=== PATIENT | male | born 1955 | race Caucasian/White ===

== ENCOUNTER 2016-12-29 12:14 | Emergency (ER) | payer BC ==
[2016-12-29 12:54] VITALS: BP 136/89
--- NOTE | 2016-12-29 14:22 | UC ---
Allegra Barboza Janilya, scribed for Karlene Hughes MD on 12/29/16 at 1304 . Eye Complaint HPI - HPI Summary HPI Summary: A 61 y/o male came in to [facility] presenting w/ a gradual onset of intermittent eye flashes in his left eye that last a few seconds. According to pt, last night, out of the left corner of his eye, he had flashes that move in a circular pattern like "a comet". It lasted only a few seconds. He denies loss of vision, black spots in the vision. He experienced these flashes again this morning. Pt also has baseline floaters in his left eye that did not get better or worse with his current Sx. However, the floaters have become fuzzier than normal ( sharp), although it is better now. These sx did not occur in broad daylight. He felt like he could almost make the flash come on with moving his eyes, but he specifically states not in the bright light of the exam room/sunshine today. He goes to [facility] for his glasses. Additionally, although not significant and not pt's chief complaint, pt has cold like Sx, such as coughing and wheezing. He has been taking NyQuil. PMHx HTN, for which he takes medication, so is well controlled. Pt is accompanied by his . - History of Current Complaint Stated Complaint: SEEING FLASHES AROUND EYE Hx Obtained From: Patient Onset/Duration: Gradual Onset, Lasting Days, Still Present Timing: Intermittent Episode Lasting - a few seconds Severity Initially: Moderate Severity Currently: Moderate Aggravating Factor(s): Nothing Alleviating Factor(s): Nothing Associated Signs And Symptoms: Negative: Vision Impairment Right, Vision Impairment Left - Allergies/Home Medications Allergies/Adverse Reactions: Allergies Allergy/AdvReac Type Severity Reaction Status Date / Time Poison Lillie Extract/Poison Allergy Unknown Unknown Verified 12/29/16 12:43 [place] Extra Reaction [From Poison Lillie/[place] Extract] Details Home Medications: Home Medications Atorvastatin* [Lipitor 40 MG*] 1 tab PO BID 12/29/16 [History Confirmed 12/29/16 ] PMH/Surg Hx/FS Hx/Imm Hx Previously Healthy: Yes Endocrine History Of: Reports: Diabetes Denies: Thyroid Disease Cardiovascular History Of: Reports: Hypertension Denies: Cardiac Disorders Respiratory History Of: Denies: COPD, Asthma GI/ History Of: Reports: Gastroesophageal Reflux Denies: Ulcer - Surgical History Surgical History: None - Family History Known Family History: Positive: Hypertension, Diabetes - father - Social History Alcohol Use: None Substance Use Type: None Smoking Status (MU): Former Smoker Review of Systems Constitutional: Negative Skin: Negative Eyes: Blurred Vision - his floaters were blurrier than normal, Other - Flashes like "comets" in his left eye ENT: Negative Respiratory: Cough, Other - wheezing Cardiovascular: Negative Gastrointestinal: Negative Genitourinary: Negative Motor: Negative Neurovascular: Negative Musculoskeletal: Negative Neurological: Negative Psychological: Negative All Other Systems Reviewed And Are Negative: Yes Physical Exam Triage Information Reviewed: Yes Appearance: Well-Appearing Vital Signs: Initial Vital Signs Temp 98.3 F 12/29/16 12:47 Pulse 88 12/29/16 12:47 Resp 16 12/29/16 12:47 BP 136/89 12/29/16 12:47 Pulse Ox 96 12/29/16 12:47 Vital Signs Reviewed: Yes Eye Exam: Normal Eyes: Positive: Conjunctiva Clear, Other: - Fundus exam normal. ENT: Positive: Normal ENT inspection, Hearing grossly normal, Pharynx normal, Nasal drainage, TMs normal, Other: - Post-nasal drip. Negative: Pharyngeal erythema, Nasal congestion, TM bulging, TM dull, TM red, Tonsillar swelling, Tonsillar exudate Dental Exam: Normal Neck: Positive: Supple, Nontender, No Lymphadenopathy Respiratory: Positive: Lungs clear, Normal breath sounds, No respiratory distress, No accessory muscle use Cardiovascular: Positive: RRR, No Murmur, Pulses Normal Abdomen Description: Positive: Nontender, Soft Musculoskeletal Exam: Normal Neurological Exam: Normal Psychological Exam: Normal Skin Exam: Normal Eye Complaint Course/Dx - Course Course Of Treatment: I called Dr Dunn's office to see if they were open today and could see the pt if needed. Dr Dunn r/c and I reviewed his sx in detail with her. She recommends f/u at their office on 3/6 AM, but made it clear that if sx worsen, loss of vision or shadows occur, he should go to [facility]. I have reveiwed this with David and his Evelia, they understood me well and are very agreeable with this plan. - Differential Dx/Diagnosis Differential Diagnosis/HQI/PQRI: Detached Retina, Foreign Body, Retinal Artery Occlusion Provider Diagnoses: floaters, visual flashes of light. Discharge - Discharge Plan Condition: Stable Disposition: HOME Prescriptions: Albuterol HFA INHALER* [Ventolin HFA Inhaler*] 2 puff INH Q4H PRN #1 mdi PRN Reason: Cough Patient Education Materials: Upper Respiratory Infection (ED), Visual Floaters (ED) Referrals: Yvette Montero MD [Primary Care Provider] - Edie Dunn [Medical Doctor] - 12/31/16 Additional Instructions: We discussed the nature of the visual disturbance you are having and my conversation with Dr Dunn. If the flashes get worse, especially in broad daylight, you develop shadows or the floaters worsen suddenly, please go to the [facility] ER immediately. For your cold, fluids, rest and inhaler will be helpful as well. The documentation as recorded by the Allegra garza Janilya accurately reflects the service I personally performed and the decisions made by me, Karlene Hughes MD.
== END 2016-12-29 13:50 | disposition home or self-care (01) ==
LOC: UCEAST 12:14
DX: H43.392 Other vitreous opacities, left eye (principal); H53.19 Other subjective visual disturbances; I10 Essential (primary) hypertension; Z87.891 Personal history of nicotine dependence
CPT/HCPCS: 99212; G0463

== ENCOUNTER 2018-03-26 08:43 | Day surgery (SDC) | payer BC ==
[~2018-03-26 08:43] MED LIST: Buffered Lidocaine 0.9% SYRIN* 5 ML/SYR SYRINGE INTRADERM ONE
[2018-03-26] MEDS ORDERED: Propofol* 10 MG/ML 20 ML BTL IV PUSH ONE (10:59)
[2018-03-26] MEDS ORDERED: Lidocaine 2% PF * 5 ML VIAL ONE (10:59)
[2018-03-26 11:33] VITALS: BP 122/67
[2018-03-26] MEDS ORDERED: Phenylephrine 2.5% OPTH.SOL* 2 ML BTL ONE (12:22)
[2018-03-26] MEDS ORDERED: Neomycin/Polymy/Dex OPTH.SUSP* MAXITROL 0.1% 5 ML ONE (12:22)
[2018-03-26] MEDS ORDERED: Cyclopentolate 1% OPTH.SOL* 2 ML BTL ONE (12:22)
[2018-03-26] MEDS ORDERED: Proparacaine 0.5% OPHTH.SOL* 15 ML BTL ONE (12:22)
[2018-03-26] MEDS ORDERED: Lidocaine 2% EPI 1:200000 MPF*10-20 ML VIAL ONE (12:22)
[2018-03-26] MEDS ORDERED: Ketorolac 0.5% OPHTH (NF) 0.5 % 5 ML BTL ONE (12:22)
[2018-03-26] MEDS ORDERED: acetaZOLAMIDE TAB* 250 MG ONE (12:22)
[2018-03-26] MEDS ORDERED: Povidone Iodine 5% OPTH* 30 ML BTL ONE (12:22)
[2018-03-26] MEDS ORDERED: Lidocaine 1%* 5 ML VIAL ONE (12:22)
--- NOTE | 2018-03-27 08:26 | OP ---
DATE OF OPERATION: 03/26/18 [facility] DATE OF : 51 SURGEON: Watson Hameed M.D. PREOPERATIVE DIAGNOSIS: Cataract, left eye. POSTOPERATIVE DIAGNOSIS: Cataract, left eye. OPERATIVE PROCEDURE: Extracapsular cataract extraction with intraocular lens implant, left eye, and CTR. DESCRIPTION OF PROCEDURE: The patient was brought to the operating room after being given 1/2% Alcaine with epinephrine drops in the preoperative area. The eye was prepped and draped in the usual sterile fashion. Sterile drape and eyelid speculum were placed. Again, topical 1/2% Alcaine with epinephrine was given. A paracentesis incision was made at the 3 o'clock position with the No. 75 blade. Clear cornea incision 2.2 x 2.2-mm was created at the 6 o'clock position starting at the anterior limbus using the 2.2-mm keratome. The anterior chamber was irrigated with 0.4 mL of 1% non-preservative intracameral lidocaine and filled with DisCoVisc. A capsulorrhexis was completed using the cystotome and the Utrata forceps. Hydrodissection was performed with balanced salt solution. The lens nucleus was removed with the Phacoemulsification handpiece without incident. Cortex was removed with the irrigation-aspiration handpiece. The capsular bag was re-inflated using DisCoVisc and an [id number] implant was inserted with the shooter followed by capsular tension ring. A CTR 12 was inserted with the shooter. The irrigation- aspiration handpiece was used to remove all residual DisCoVisc. The eye was refilled with balanced salt solution and the wound checked and found to be water tight. Topical Maxitrol drops were given. Indications for complex cataract surgery: Status post vitrectomy requiring capsular tension device. [id number]/[facility] #: [id number] MTDD
== END 2018-03-26 11:46 | disposition home or self-care (01) ==
LOC: OREAST 08:43
PROVIDERS: ATTEND Specialist
DX: H25.813 Combined forms of age-related cataract, bilateral (principal); H33.8 Other retinal detachments; I10 Essential (primary) hypertension; K21.9 Gastro-esophageal reflux disease without esophagitis; E78.00 Pure hypercholesterolemia, unspecified; E11.9 Type 2 diabetes mellitus without complications; Z87.891 Personal history of nicotine dependence
CPT/HCPCS: A9270-GY; J2704; V2632

== ENCOUNTER 2018-03-27 15:27 | Day surgery (SDC) | payer BC ==
[2018-03-27] MEDS ORDERED: Acetylcholine 1:100 OPTH* OPHTH.SOLN ONE (15:48)
[2018-03-27] MEDS ORDERED: Ondansetron INJ* 2 MG/ML VIAL ONE (15:58)
[2018-03-27] MEDS ORDERED: Lidocaine 2% PF * 5 ML VIAL ONE (15:58)
[2018-03-27] MEDS ORDERED: Propofol* 10 MG/ML 20 ML BTL IV PUSH ONE (15:58)
[2018-03-27] MEDS ORDERED: Proparacaine 0.5% OPHTH.SOL* 15 ML BTL ONE ×2 (16:02→16:30)
[2018-03-27] MEDS ORDERED: Lidocaine 1%* 5 ML VIAL ONE (16:29)
[2018-03-27] MEDS ORDERED: Povidone Iodine 5% OPTH* 30 ML BTL ONE (16:29)
[2018-03-27] MEDS ORDERED: Neomycin/Polymy/Dex OPTH.SUSP* MAXITROL 0.1% 5 ML ONE (16:29)
[2018-03-27] MEDS ORDERED: Lidocaine 2% EPI 1:200000 MPF*10-20 ML VIAL ONE (16:29)
[2018-03-27 16:49] VITALS: BP 127/74
--- NOTE | 2018-03-28 12:43 | OP ---
DATE OF OPERATION: 03/27/18 - [facility] DATE OF : 51 SURGEON: Watson Hameed MD ANESTHESIA: Local with MAC. PRE-OP DIAGNOSIS: Dislocated intraocular lens, left eye. POST-OP DIAGNOSIS: Dislocated intraocular lens, left eye. OPERATIVE PROCEDURE: Reposition of intraocular lens. COMPLICATIONS: None. DESCRIPTION OF PROCEDURE: The patient was prepped and draped in the usual sterile fashion with speculum placed in the left eye. It was noted that the inferior portion of the optic was anterior to the anterior capsulorrhexis. 1% non-preserved intracameral lidocaine was infused into the anterior chamber and then the optic repositioned inside the capsular bag posterior to the capsulorrhexis using the balanced salt solution with a cannula. Intraocular pressure was reestablished with balanced salt solution. The eye was thoroughly inspected. Miochol was given to constrict the pupil and pressure normalizes balanced salt solution. [id number]/[facility] #: [id number] MTDD
== END 2018-03-27 16:47 | disposition home or self-care (01) ==
LOC: OREAST 15:27
PROVIDERS: ATTEND Specialist
DX: T85.22XA Displacement of intraocular lens, initial encounter (principal); H40.1421 Capsular glaucoma with pseudoexfoliation of lens, left eye, mild stage; H33.8 Other retinal detachments; Z79.4 Long term (current) use of insulin; E11.40 Type 2 diabetes mellitus with diabetic neuropathy, unspecified; Z79.84 Long term (current) use of oral hypoglycemic drugs; I10 Essential (primary) hypertension; R25.1 Tremor, unspecified
CPT/HCPCS: A9270-GY; J2405; J2704

== ENCOUNTER 2019-02-14 17:13 | Emergency (ER) | payer BC ==
[2019-02-14 17:22] VITALS: BP 152/87
--- NOTE | 2019-02-14 17:41 | UC ---
Bite Injury/Animal HPI - HPI Summary HPI Summary: noticed tick embedded in back of arm L side. was not engorged. reports it being sort of itchy - History of Current Complaint Chief Complaint: UCBiteInjury Stated Complaint: LT ARM BITE Time Seen by Provider: 02/14/19 17:15 Hx Obtained From: Patient Pain Intensity: 1 Pain Scale Used: 0-10 Numeric - Allergies/Home Medications Allergies/Adverse Reactions: Allergies Allergy/AdvReac Type Severity Reaction Status Date / Time poison estefany extract Allergy Rash And Verified 02/14/19 17:23 Itching PMH/Surg Hx/FS Hx/Imm Hx Endocrine History: Diabetes Cardiovascular History: Hypertension - Surgical History Surgical History: Yes Surgery Procedure, Year, and Place: 1972 repair of ulnar fracture right arm. left retina and macular tear repaired 01/2018 - Family History Known Family History: Positive: Hypertension, Diabetes - father - Social History Alcohol Use: None Substance Use Type: None Smoking Status (MU): Former Smoker Amount Used/How Often: smoked for 25 years cigarettes then cigars When Did the Patient Quit Smoking/Using Tobacco: 24 years ago Review of Systems All Other Systems Reviewed And Are Negative: Yes Constitutional: Negative: Fever Skin: Positive: Other - tick bite. Negative: Rash Musculoskeletal: Negative: Arthralgia Physical Exam Triage Information Reviewed: Yes Appearance: Well-Appearing Vital Signs: Initial Vital Signs Temp 97.4 F 02/14/19 17:20 Pulse 83 02/14/19 17:20 Resp 12 02/14/19 17:20 BP 152/87 02/14/19 17:20 Pulse Ox 97 02/14/19 17:20 Vital Signs Reviewed: Yes Neurological: Positive: Alert Skin: Positive: Significant Lesion(s) - post. arm has non-engored tick that was removed w/out complication Bite Injury Course/Dx - Course Course Of Treatment: Tick attached for <36hrs, not engorged and removed w/ no issue. prophylaxis rx' d. reviewed s/sx of when to return for f/u w/ pcp - Differential Dx/Diagnosis Differential Diagnosis/HQI/PQRI: Cellulitis, Other Provider Diagnosis: Tick bite Discharge - Sign-Out/Discharge Documenting (check all that apply): Patient Departure All imaging exams completed and their final reports reviewed: No Studies - Discharge Plan Condition: Good Disposition: HOME Patient Education Materials: Lyme Disease (ED) Referrals: Yvette Montero MD [Primary Care Provider] - Additional Instructions: Please follow up with your pcp re: your blood pressure. - Billing Disposition and Condition Condition: GOOD Disposition: Home
[2019-02-14] MEDS ORDERED: DOXYcycline CAP(*) 100 MG PO ONE (17:42)
== END 2019-02-14 18:05 | disposition home or self-care (01) ==
LOC: UCEAST 17:13
DX: S40.862A Insect bite (nonvenomous) of left upper arm, initial encounter (principal); W57.XXXA Bitten or stung by nonvenomous insect and other nonvenomous arthropods, initial encounter; Y92.9 Unspecified place or not applicable; E11.9 Type 2 diabetes mellitus without complications; I10 Essential (primary) hypertension; Z87.891 Personal history of nicotine dependence
CPT/HCPCS: 99212; A9270-GY; G0463

== ENCOUNTER 2019-09-18 11:01 | Emergency (ER) | payer SELFPAY ==
[2019-09-18 11:16] VITALS: BP 150/100
--- NOTE | 2019-09-18 12:08 | UC ---
Lower Extremity/Ankle HPI - HPI Summary HPI Summary: 63 year old male with h/o DM II presents after fall in parking lot last night. NO head injury, no LOC, no blood thinner. ALl over body ache, but increased pain over his right great toe. + discoloration of his toe nail with pain in surrounding area and at IP of great toe. no bruising noted, mild swelling. - no prior toe injuries. - History of Current Complaint Chief Complaint: UCLowerExtremity Stated Complaint: TOE INJURY Time Seen by Provider: 09/18/19 12:00 Hx Obtained From: Patient Onset/Duration: Sudden Onset, Lasting Days - last night Severity Initially: Moderate Severity Currently: Moderate Pain Intensity: 3 Pain Scale Used: 0-10 Numeric Aggravating Factor(s): Standing, Ambulation Alleviating Factor(s): Rest Able to Bear Weight: Yes - Allergies/Home Medications Allergies/Adverse Reactions: Allergies Allergy/AdvReac Type Severity Reaction Status Date / Time poison estefany extract Allergy Rash And Verified 09/18/19 11:16 Itching Home Medications: Home Medications Aspirin 975 mg PO ONCE 09/18/19 [History Confirmed 09/18/19] PMH/Surg Hx/FS Hx/Imm Hx Previously Healthy: Yes Endocrine History: Diabetes - II - Surgical History Surgical History: Yes Surgery Procedure, Year, and Place: 1972 repair of ulnar fracture right arm. left retina and macular tear repaired 01/2018 - Family History Known Family History: Positive: Hypertension, Diabetes - father, Non- Contributory - Social History Occupation: Retired Alcohol Use: None Substance Use Type: None Smoking Status (MU): Former Smoker Amount Used/How Often: smoked for 25 years cigarettes then cigars When Did the Patient Quit Smoking/Using Tobacco: 24 years ago Review of Systems All Other Systems Reviewed And Are Negative: Yes Constitutional: Positive: Negative Musculoskeletal: Positive: Arthralgia, Decreased ROM, Edema Neurological: Positive: Negative Psychological: Positive: Negative Is Patient Immunocompromised?: No Physical Exam Triage Information Reviewed: Yes Appearance: Well-Appearing, No Pain Distress, Well-Nourished Vital Signs: Initial Vital Signs Temp 97.7 F 09/18/19 11:11 Pulse 83 09/18/19 11:11 Resp 18 09/18/19 11:11 BP 150/100 09/18/19 11:11 Pulse Ox 100 09/18/19 11:11 Vital Signs Reviewed: Yes Eyes: Positive: Conjunctiva Clear ENT: Positive: Hearing grossly normal Musculoskeletal: Positive: ROM Intact - all toes, ankle R sided, Edema @ - right great toe, Other: - SITLT distal to right ankle, no ankle tenderness, full AROM fo right ankle. PT R 2+ discoloration. Negative: No Edema Neurological: Positive: Alert, Muscle Tone Normal, Other: - SITLT distal to right ankle, no ankle tenderness, full AROM fo right ankle. PT R 2+ Psychological Exam: Normal Psychological: Positive: Normal Response To Family Skin: Positive: Other - mild edema at right great toe, violacious discoloration under great toe with TTP. TTP over IP great toe, no ecchymosis, minimal edema. Full ROM all right toes against resistence. Lower Extremity Course/Dx - Course Course Of Treatment: Subungal hematoma/ blood blister under toenail- - Area drained, keep pressure over area as best as possible to prevent re- accumulation. - No soaking toe, showering OK - Antibiotics to prevent infection x 5 days - Return if redness, pain worsens or fever, chills. - Elevate over next 2-3 days to increase healing. - motrin/ tylenol as needed for pain Toe X-ray: Space Engineer: Luz Maria Hopkins S, ([id number]) Prevocational/Rehabilitation Counselor: MENDEZ (MENDEZ) Report Date: 09/18/2019 12:47:00 Report Status: Final Start of Report Content Patient Name: BEAU DE PAZ Medical Record#: [id number] Ordering Physician: Amarilys CACERES Acct.#: [id number] : 09/1955 Age: 63 Sex: M Location: [facility] Exam Date: 09/18/19 1208 ADM Status: REG ER Order Information: TOE RIGHT GREAT Accession Number: [id number] CPT: 05919 Indication: Fall, pain interphalangeal joint of the great toe. 3 views of the right foot demonstrates no fracture or dislocation. No other bone or joint abnormality is identified. IMPRESSION: No fracture of the right great toe is noted. <Electronically signed by Luz Maria Hopkins MD in OV> 09/18/19 1243 Dictated By: Luz Maria Hopkins MD Dictated Date/Time: 09/18/19 1233 Transcribed Date/ Time: 09/18/19 1233 Copy to: CC:Deric Eisenberg MD; Amarilys CACERES; May Matt MD Imaging - [facility] Imaging - [facility] [address] [address] ph [phone] ph ) ph ([phone]) End of Report Content - Differential Dx/Diagnosis Differential Diagnosis/HQI/PQRI: Osteomyelitis, Phlebitis, Sprain, Strain, Tendonitis, Tenosynovitis Provider Diagnosis: Subungual hematoma of toe Discharge ED - Sign-Out/Discharge Documenting (check all that apply): Patient Departure All imaging exams completed and their final reports reviewed: Yes - Discharge Plan Condition: Good Disposition: HOME Prescriptions: Cephalexin CAP* [Keflex CAP*] 500 mg PO TID #15 cap Patient Education Materials: Subungual Hematoma (ED) Referrals: May Matt MD [Primary Care Provider] - Additional Instructions: - Subungal hematoma/ blood blister under toenail- - Area drained, keep pressure over area as best as possible to prevent re- accumulation. - No soaking toe, showering OK - Antibiotics to prevent infection x 5 days - Return if redness, pain worsens or fever, chills. - Elevate over next 2-3 days to increase healing. - motrin/ tylenol as needed for pain Toe X-ray: Space Engineer: Luz Maria Hopkins S, ([id number]) Prevocational/Rehabilitation Counselor: MENDEZ (MENDEZ) Report Date: 09/18/2019 12:47:00 Report Status: Final Start of Report Content Patient Name: BEAU DE PAZ Medical Record#: [id number] Ordering Physician: Amarilys CACERES Acct.#: [id number] : 09/1955 Age: 63 Sex: M Location: [facility] Exam Date: 09/18/19 1208 ADM Status: REG ER Order Information: TOE RIGHT GREAT Accession Number: [id number] CPT: 29294 Indication: Fall, pain interphalangeal joint of the great toe. 3 views of the right foot demonstrates no fracture or dislocation. No other bone or joint abnormality is identified. IMPRESSION: No fracture of the right great toe is noted. <Electronically signed by Luz Maria Hopkins MD in OV> 09/18/19 1243 Dictated By: Luz Maria Hopkins MD Dictated Date/Time: 09/18/19 1233 Transcribed Date/ Time: 09/18/19 1233 Copy to: CC:Deric Eisenberg MD; Amarilys CACERES; May Matt MD Imaging - [facility] Imaging - [facility] Imaging - [facility] [address] [place], [place] [id number] [place] [id number] [place] [address] ph [phone]) ph ) ph ([phone]) End of Report Content - Billing Disposition and Condition Condition: GOOD Disposition: Home - Attestation Statements Provider Attestation: Chart reviewed. Pt not seen by me. I was available for consult. blade
== END 2019-09-18 13:03 | disposition home or self-care (01) ==
LOC: UCEAST 11:01
DX: S90.111A Contusion of right great toe without damage to nail, initial encounter (principal); E11.9 Type 2 diabetes mellitus without complications; Z87.891 Personal history of nicotine dependence; Z91.09 Other allergy status, other than to drugs and biological substances; Z79.82 Long term (current) use of aspirin; W18.30XA Fall on same level, unspecified, initial encounter; Y92.481 Parking lot as the place of occurrence of the external cause
CPT/HCPCS: 11740; 99212; G0463

== ENCOUNTER 2024-05-17 17:20 | Observation (INO) ==
[2024-05-17] MEDS ORDERED: Albuterol/Ipratropium NEB.SOL (2.5/0.5 MG) 3 ML NEB.SOLN ONE (17:32)
[2024-05-17] MEDS: Lactated Ringers 1000 ml BAG 1,000 ML IV ONE (17:53)
[2024-05-17] MEDS: Norepinephrine 4 MG/250mL D5W 4,000 MCG/250 ML BAG IV SCH (17:53)
[2024-05-17] MEDS: Piperacillin/Tazobac 3.375 BAG 3.375 GM/100 ML BAG IV ONE (17:53)
[2024-05-17] MEDS ORDERED: Norepinephrine 4 MG/250mL NS 4,000 MCG/250 ML BAG IV SCH (18:00)
[2024-05-17 18:17] LABS: Hematocrit 34.1 % (38-53); Hemoglobin 11.5 g/dL (13.2-16.3); Mean Corpuscular Hemoglobin 31.3 pg (27-33); Mean Corpuscular Hgb Conc 33.7 g/dL (31-36); Mean Corpuscular Volume 93.1 fL (80-97); Mean Platelet Volume 9.3 fL (7.5-11.2); Platelet Count 201 10^3/uL (150-450); Red Blood Count 3.66 10^6/uL (4.06-5.63); Red Cell Distribution Width 17.9 % (12-17); White Blood Count 22.1 10^3/uL (3.6-10.2)
[2024-05-17 18:33] LABS: High Sens Troponin Baseline 47 pg/mL (<20)
[2024-05-17] MEDS: Vancomycin 1,500 MG in NS 0.9% 250 ml 250 ML IVPB ONE (18:54)
[2024-05-17 19:13] LABS: ALT 69 U/L (7-52); Albumin 2.4 g/dL (3.2-5.2); Albumin/Globulin Ratio 1.1 (1-3); Alkaline Phosphatase 478 U/L (35-149); Anion Gap 20 mmol/L (2-16); Blood Urea Nitrogen 112 mg/dL (6-24); C Reactive Protein 351.78 mg/L (<8.01); CO2 Carbon Dioxide 12 mmol/L (22-32); Calcium 5.7 mg/dL (8.6-10.3); Chloride 87 mmol/L (101-111); Creatinine, Serum 9.25 mg/dL (0.67-1.17); Globulin 2.1 g/dL (2-4); Glucose 181 mg/dL (70-100); Sodium 119 mmol/L (135-145); Total Protein 4.5 g/dL (6.4-8.9); eGFR CKD-EPI 5.6 (>60)
[2024-05-17 19:17] LABS: Urine Appearance Extra Turbid; Urine Bilirubin 2+ (Negative); Urine Blood Trace (Negative); Urine Glucose 1+ (>=70 mg/dL) (Negative); Urine Ketones Negative (Negative); Urine Nitrite Negative (Negative); Urine Protein 1+ (>=30 mg/dL) (Negative); Urine Specific Gravity 1.017 (1.002-1.030); Urine Urobilinogen Negative (Negative)
[2024-05-17 19:20] LABS: ABS Lymphocytes 7.3 10^3/uL (1.0-4.8); ABS Monocytes 0.3 10^3/uL (0.0-1.1); ABS Neutrophils 14.4 10^3/uL (1.5-7.6); ABS Nucleated RBC 0.01 10^3/ul; Eosinophil % 0.1 %; Lymphocyte % 32.9 %
[2024-05-17 19:28] LABS: Urine Color Amber
[2024-05-17 19:29] LABS: Urine Bacteria Absent /HPF (Absent); Urine Red Blood Cell 2+(6-10/hpf) /HPF (0-Trace); Urine White Blood Cell Absent /HPF (0-Trace)
[2024-05-17 19:32] LABS: High Sensitivity Troponin 1 Hr 50 pg/mL (<20)
[2024-05-17 19:34] LABS: Total Bilirubin > 50.0 mg/dL (0.2-1.0)
[2024-05-17 19:40] LABS: Resp Rate 12
[2024-05-17] MEDS: Furosemide 40 mg/4 ml IV VIAL IV SLOW PU ONE (19:40)
[2024-05-17 19:43] LABS: PCO2 Arterial 28 mmHg (35-45); PO2 Arterial 107 mmHg (80-100)
[2024-05-17 19:54] LABS: Lipase 1732 U/L (11.0-82.0)
[2024-05-17] MEDS: CALCIUM GLUCONATE 1GM/50ML NS 1 GM/50 ML BAG IV ONE ×2 (20:02→21:15)
[2024-05-17] MEDS: NS 0.9% 1000 ml BAG 1,000 ML IV ONE (20:02)
[2024-05-17 20:17] LABS: Potassium, Whole Blood 6.9 mmol/L (3.4-4.5)
[2024-05-17 20:48] LABS: Uric Acid 9.4 mg/dL (4.4-7.6)
[2024-05-17] MEDS: Dextrose 50% Syringe 50 ml 25 GM/50 ML SYRINGE IV PUSH ONE ×2 (21:15→21:16)
[2024-05-18 00:45] LABS: ALT 65 U/L (7-52); Blood Urea Nitrogen 116 mg/dL (6-24); CO2 Carbon Dioxide 12 mmol/L (22-32); Calcium 5.5 mg/dL (8.6-10.3); Chloride 89 mmol/L (101-111); Creatinine, Serum 9.39 mg/dL (0.67-1.17); Glucose 201 mg/dL (70-100); Sodium 119 mmol/L (135-145); eGFR CKD-EPI 5.5 (>60)
[2024-05-18 00:46] LABS: Albumin 2.2 g/dL (3.2-5.2); Albumin/Globulin Ratio 1.2 (1-3); Alkaline Phosphatase 457 U/L (35-149); Anion Gap 18 mmol/L (2-16); Globulin 1.9 g/dL (2-4); Total Protein 4.1 g/dL (6.4-8.9)
[2024-05-18] MEDS: fentaNYL 100 mcg/2 ml 50 MCG/ML VIAL IV SLOW PU ONE ×4 (00:50→03:55)
[2024-05-18 00:51] LABS: Total Bilirubin 35.2 mg/dL (0.2-1.0)
[2024-05-18] MEDS ORDERED: Morphine ORAL CONCENTRATE 5 MG/0.25 ML ORAL.SYRIN SL PRN (02:55)
[2024-05-18] MEDS ORDERED: fentaNYL 100 mcg/2 ml 50 MCG/ML VIAL ONE (03:41)
[2024-05-18 04:19] VITALS: BP 154/58
== END 2024-05-18 04:04 | disposition expired ==
LOC: EDHOLD 17:20 → ED 17:20 → EDHOLD 05-18 04:03
PROVIDERS: ADMIT Internal Medicine; ATTEND Internal Medicine